=== PATIENT | male | born 1950 | race American Indian/Alaskan Native ===

== ENCOUNTER 2016-08-23 15:49 | Emergency (ER) | payer MEDICAID ==
[2016-08-23 15:59] VITALS: BP 132/88; PULSE 87; RESP 18; TEMP 98.3; O2SAT 97
[2016-08-23] MEDS ORDERED: Lidocaine 1% Inj (20ml) INFIL STA (16:59)
[2016-08-23] MEDS ORDERED: Lidocaine 1% Inj (20ml) ONE (17:05)
--- NOTE | 2016-08-23 17:19 | C.PDOC ---
History Of Present Illness 65 year old patient, with a past medical history of hypertension, was fishing and the pole hit his mouth sustaining a laceration to his lower lip today. Patient denies fever, nausea, vomiting or headache. Time Seen by Provider: 08/23/16 16:53 Chief Complaint (Nursing): Dental Pain History Per: Patient History/Exam Limitations: no limitations Onset/Duration Of Symptoms: Hrs (today) Current Symptoms Are (Timing): Still Present Severity: Mild Pain Scale Rating Of: 3 Recent travel outside of the [place]: No Past Medical History Reviewed: Historical Data, Nursing Documentation, Vital Signs Vital Signs: Last Vital Signs Temp 98.3 F 08/23/16 15:56 Pulse 87 08/23/16 15:56 Resp 18 08/23/16 15:56 BP 132/88 08/23/16 15:56 Pulse Ox 97 08/23/16 20:52 - Medical History PMH: HTN Family History: States: Unknown Family Hx - Social History Hx Alcohol Use: Yes Hx Substance Use: No - Immunization History Hx Tetanus Toxoid Vaccination: No Hx Influenza Vaccination: Yes Hx Pneumococcal Vaccination: No Review Of Systems Except As Marked, All Systems Reviewed And Found Negative. Constitutional: Negative for: Fever Gastrointestinal: Negative for: Nausea, Vomiting Skin: Positive for: Other (laceration to the lower lip) Neurological: Negative for: Headache Physical Exam - Physical Exam Appears: Non-toxic, No Acute Distress Skin: Warm, Dry Head: Atraumatic, Normacephalic Eye(s): bilateral: Normal Inspection, EOMI Ear(s): Bilateral: Normal Nose: Normal Oral Mucosa: Moist Tongue: Normal Appearing Lips: Laceration (1 cm by 1 cm to the lower mid lip (-)active bleeding) Teeth: Normal Dentition Gingiva: Normal Appearing Throat: Normal Cardiovascular: Rhythm Regular Respiratory: Normal Breath Sounds, No Rales, No Rhonchi, No Wheezing ED Course And Treatment O2 Sat by Pulse Oximetry: 97 (room air) Pulse Ox Interpretation: Normal Laceration - Laceration Repair lower mid lip Wound Length (In cm): 1 by 1 Description Of Wound: Linear Wound Cleansed With: Betadine, Sterile Saline Anesthesia: Lidocaine 1% Wound Examination: Irrigated With Saline, No FB With Wound Exploration, No Tendon Injury With Wound Exploration Wound Debridement/Revision: Wound Debrided, Wound Margins Revised Wound Closure: Suture (1) Suture Technique And Material Used: Running, Chromic (fast absorbing) Wound Complexity: Simple Medical Decision Making Medical Decision Making: Impression: 65 y/o male with laceration to lower lip Plan: * suture the laceration * Reassess and disposition Progress: Patient tolerated the procedure well. Disposition Counseled Patient/Family Regarding: Diagnosis, Need For Followup - Disposition Disposition: HOME/ ROUTINE Disposition Time: 17:18 Condition: STABLE Additional Instructions: Keep area clean and dry. May wash gently with soap and water, do not use alcohol or iodine solution. Absorbable sutures were used to close laceration and will dissolve in 5-7 days Instructions: Care For Your Absorbable Stitches (ED) - POA Present On Arrival: None - Clinical Impression Clinical Impression: Lip laceration - PA / MANAGER ADVERTISING / Resident Statement MD/DO has reviewed & agrees with the documentation as recorded. - Scribe Statement The provider has reviewed the documentation as recorded by the Scribe Estella Mills All medical record entries made by the Scribe were at my direction and personally dictated by me. I have reviewed the chart and agree that the record accurately reflects my personal performance of the history, physical exam, medical decision making, and the department course for this patient. I have also personally directed, reviewed, and agree with the discharge instructions and disposition.
== END 2016-08-23 18:00 | disposition home or self-care (01) ==
LOC: C.ER 15:49
DX: S01.511A Laceration without foreign body of lip, initial encounter (principal); W22.8XXA Striking against or struck by other objects, initial encounter; Y93.89 Activity, other specified

== ENCOUNTER 2018-09-16 09:29 | Outpatient (CLI) | payer MEDICARE | END 2018-09-16 09:30 | disposition home or self-care (01) | LOC: C.USIC 09:29 | DX: K74.60 Unspecified cirrhosis of liver (principal) ==